=== PATIENT | female | born 1990 ===

== ENCOUNTER 2022-08-05 07:22 | Day surgery (SDC) | payer OTHER ==
[~2022-08-05 07:22] MED LIST: ZYRTEC10 M3 PO
[2022-08-05] MEDS ORDERED: IBU600 MG PO (10:47)
== END 2022-08-05 15:30 | disposition home or self-care (01) ==
LOC: CIR.AMB 07:22
PROVIDERS: ATTEND Obstetrics & Gynecology Gynecology
DX: N84.0 Polyp of corpus uteri (principal); N72 Inflammatory disease of cervix uteri; N87.9 Dysplasia of cervix uteri, unspecified; Z86.16 Personal history of COVID-19; Z20.822 Contact with and (suspected) exposure to COVID-19

== ENCOUNTER 2024-06-07 13:32 | Outpatient (CLI) | payer OTHER ==
[~2024-06-07 13:32] MED LIST changes: +IBU600 MG PO
== END 2024-06-07 14:24 | disposition home or self-care (01) ==
LOC: NST 13:32
PROVIDERS: ATTEND Obstetrics & Gynecology
DX: Z34.82 Encounter for supervision of other normal pregnancy, second trimester (principal)

== ENCOUNTER 2024-08-04 10:11 | Outpatient (CLI) | payer OTHER | END 2024-08-04 10:20 | disposition home or self-care (01) | LOC: NST 10:11 | PROVIDERS: ATTEND Obstetrics & Gynecology Gynecology | DX: Z34.83 Encounter for supervision of other normal pregnancy, third trimester (principal) ==